=== PATIENT | female | born 1935 | race Caucasian/White ===

== ENCOUNTER 2017-05-24 12:34 | Inpatient (IN) | payer MEDICARE, OTHER, MEDICAID ==
[2017-05-24 17:00] LABS: Hematocrit 26.5 % (37.0-47.0); Hemoglobin 8.7 gm/dL (12.5-16.0); Mean Cell Volume 91.1 fl (78-100); Mean Corpuscular Hemoglobin 29.9 pg (27-31); Mean Corpuscular Hgb Conc 32.8 g/dl (32-36); Mean Platelet Volume 8.4 fl (6.0-9.5); Neutrophil % 68.1 % (42-75.0); Platelet Count 119 K/mm3 (150-450); Red Blood Count 2.91 M/mm3 (4.2-5.4); Red Cell Distribution Width 14.2 % (11.5-14.0)
[2017-05-24 17:07] LABS: Anion Gap 13.1 mmol/L (6.8-13.8); BUN/Creatinine Ratio 17.6 (9.0-21.6); Calcium * 8.7 mg/dL (7.9-10.9); Carbon Dioxide 28.3 mmol/L (24-32.6); Estimated Creat Clear 25.5; Potassium 4.4 mmol/L (3.4-4.6)
[2017-05-24] MEDS ORDERED: ACETAMINOPHEN PO PRN (17:14)
[2017-05-24] MEDS ORDERED: [UNRECOGNIZED DRUG - OTHER] PO PRN (17:14)
[2017-05-24] MEDS ORDERED: LOPERAMIDE HCL 2 MG CAPSULE PO PRN (17:14)
[2017-05-24] MEDS ORDERED: HYDROCODONE PO PRN (17:14)
[2017-05-24] MEDS ORDERED: NITROGLYCERIN 0.4 MG/TAB BTL SL PRN (17:21)
[2017-05-24] MEDS: METHYLPREDNISOLONE SOD SUCC 250 MG in NORMAL SALINE 50 ML IV SCH ×2 (17:38→23:36)
--- NOTE | 2017-05-24 19:24 | PN ---
Dictated Progress Note - Date and Time Seen: Date: 05/24/17 Time: 19:20 - Progress Note Narrative: Vital Signs - Last Taken Temp 36.5 C 05/24/17 16:06 Pulse 83 05/24/17 16:06 Resp 16 05/24/17 16:06 BP 142/61 05/24/17 16:06 Pulse Ox 97 05/24/17 16:06 Abnormal/Pending Laboratory Last 24 HRS 05/24/17 05/24/17 05/24/17 16:55 16:55 12:42 WBC 3.0 L RBC 2.91 L Hgb 8.7 L Hct 26.5 L RDW 14.2 H Plt Count 119 L Lymphocytes % 14.8 L Monocytes % 13.8 H Lymphocytes # 0.44 L ESR BUN 24 H Est GFR (Non-Af Amer) 39 L C-Reactive Prot, Quant 3.2 H 05/24/17 12:42 WBC RBC Hgb Hct RDW Plt Count Lymphocytes % Monocytes % Lymphocytes # ESR 60 H BUN Est GFR (Non-Af Amer) C-Reactive Prot, Quant She was admitted from Dr Gaviria's office with working diagnosis of Temporal Arteritis. Vision changes, left eye discomfort and otic disc edema. ESR elevated. Explained what was involved with LEFT temporal artery biopsy to obtain diagnosis. Risks and benefits were outlined. Her questions were answered to her apparent satisfaction and informed consent obtained. She is on Eloquis, however the procedure can be done with local anesthesia/MAC. Will tentatively arrange for surgery in the AM. H&P by Hospitalist coretta.
--- NOTE | 2017-05-24 20:05 | HP ---
Chief Complaint - Chief Complaint Date of Service: 05/24/17 Time of Service: 19:58 Chief Complaint: Optic nerve edema, probable temporal arteritis History of Present Illness: 82 years old white female adm from the doctors office to the hospital with reports from Dr Jeronimo of optic nerve edema OS, probable temporal arteritis. pt stated she had a two day follow up appt for glaucoma involving the right eye. On this appt she was instructed to come to the hospital due to left eye optic nerve edema. pt denies ocular pain,headache, fatigue and report slight vision changes to left eye.PMH significant for glaucoma, anxiety,depression, hypertension, pacemaker, aortic valve replace and arthritis. On this adm ESR 60 and CRP 3.2 she was initiated on solumedrol. Plan for left temporal artery biopsy to obtain diagnosis tomorrow with Dr. Clements under local anesthesia/ MAC. pt is on Eliquis 2.5BID for aortic valve and pacemaker since 2007. RCRI 1 point 0.9% risk for major cardiac event. Pt is medically appropriate for plan procedure.Plan of care discussed with pt she verbalized understanding and agrees. - Patient's Past Medical History Patient History - Medical: Anemia, Anxiety, Depression, Glaucoma, Other - bladder prolaspe, dry eyes Patient History - Cardiac/Respiratory: Hypertension, Myocardial Infarction - with stents, Other Patient History - Cancer: Bladder Patient History - Surgical Procedures: Coronary Bypass Surgery, Hysterectomy, Pacemaker, Total Knee Replacement - right knee replacement, Other - aortic valve replaced 2007, Orthopedic - left shoulder rotator cuff repair,, Urology - bladder sling, straight cath Patient History - Other: None - Family History Father Family History - Medical: Family History - Cardiac/Respiratory: Myocardial Infarction Mother Family History - Medical: Family History - Cardiac/Respiratory: COPD - Social History Living Situations: alone Abuse History: No History of abuse Psych History: Hx of Depression Smoking Status: Former smoker Have you smoked in the past 12 months: No Do you dip or chew tobacco: No Patient requests Smoking Cessation Consult: No Initiate information on Smoking Cessation: No Alcohol Use: none Drug Use: none Review Of Systems (GEN) - Review of Systems Generalized/Overall Review: Present: No Symptoms Reported EENTM: Present: Other - dry eyes ,mild vision changes in right eye Respiratory: Present: No Symptoms Reported Cardiac: Present: No Symptoms Reported Abdominal: Present: No Symptoms Reported Genitourinary: Present: Retention - straight cath Musculoskeletal: Present: No Symptoms Reported Neurological: Present: No Symptoms Reported Skin: Present: No Symptoms Reported Endocrine: Present: No Symptoms Reported Allergies/Adverse Reactions: Allergies Allergy/AdvReac Type Severity Reaction Status Date / Time Penicillins Allergy Verified 05/24/17 16:47 pseudoephedrine Allergy Verified 05/24/17 16:47 [From [facility]] Sulfa (Sulfonamide Allergy Verified 05/24/17 16:47 Antibiotics) Home Medications: HOME MEDICATIONS Apixaban [Eliquis] 2.5 mg PO BID 05/24/17 [Last Taken Unknown] Atorvastatin Calcium 40 mg PO HS 05/24/17 [Last Taken Unknown] Carbidopa/Levodopa [Carbidopa-Levodopa 10-100 Tab] 1 each PO TID 05/24/17 [Last Taken Unknown] Cilostazol [Pletal] 50 mg PO BID 05/24/17 [Last Taken Unknown] Citalopram Hydrobromide [Celexa] 20 mg PO HS 05/24/17 [Last Taken Unknown] Fluticasone Propionate [Flonase] 1 spray NS DAILY 05/24/17 [Last Taken Unknown] Gabapentin 100 mg PO HS 05/24/17 [Last Taken Unknown] HYDROcodone/ACETAMINOPHEN [Hydrocodon-Acetaminoph 7.5-325] 1 each PO PRN PRN [Last Taken Unknown] Isosorbide Mononitrate [Isosorbide Mononitrate ER] 120 mg PO DAILY 05/24/17 [ Last Taken Unknown] LORazepam [Ativan] 0.5 mg PO HS 05/24/17 [Last Taken Unknown] Loperamide HCl [Imodium A-D] 2 mg PO PRN PRN 05/24/17 [Last Taken Unknown] Metoprolol Tartrate [Lopressor] 25 mg PO DAILY 05/24/17 [Last Taken Unknown] Pantoprazole Sodium 40 mg PO DAILY 05/24/17 [Last Taken Unknown] Travoprost [Travatan Z] 1 drop OP HS 05/24/17 [Last Taken Unknown] tiZANidine HCL [Tizanidine HCl] 4 mg PO Q8H 05/24/17 [Last Taken Unknown] traZODone HCL [Trazodone HCl] 150 mg PO HS 05/24/17 [Last Taken Unknown] Exam - Exam Vital Signs: Vital Signs - Last Taken Temp 36.5 C 05/24/17 16:06 Pulse 83 05/24/17 16:06 Resp 16 05/24/17 16:06 BP 142/61 05/24/17 16:06 Pulse Ox 97 05/24/17 16:06 Constitutional: Present: Alert, Oriented x3, Cooperative, No distress, Elderly, Obese ENT Exam: Present: hearing grossly normal Eye Exam: bilateral eye: other - report right eye vision changes Neck: Present: full range of motion Back Exam: Present: normal inspection, no CVA tenderness Respiratory: Present: chest non-tender, lungs clear, normal breath sounds Cardiovascular/Chest: Present: normal peripheral pulses, regular rate, rhythm, no chest tenderness Peripheral Pulses: dorsalis-pedis (R): 2+, dorsalis-pedis (L): 2+ Abdomen: Present: Normal bowel sounds, soft, nontender, nondistended /Rectal: Present: Exam deferred Extremity: Present: normal range of motion, non-tender, normal inspection, no pedal edema Skin Exam: Present: warm/dry Neurologic: Present: normal mood/affect, oriented x 3 Appearance: Present: appropriate appearance, appropriate insight Eye contact: Present: cooperative, good eye contact Thoughts: Present: normal thought pattern, no apparent hallucination Diagnostic Studies: Abnormal Lab Results 05/24/17 05/24/17 05/24/17 Range/Units 12:42 12:42 16:55 WBC 3.0 L (4.0-10.5) K/mm3 RBC 2.91 L (4.2-5.4) M/mm3 Hgb 8.7 L (12.5-16.0) gm/dL Hct 26.5 L (37.0-47.0) % RDW 14.2 H (11.5-14.0) % Plt Count 119 L (150-450) K/mm3 Lymphocytes % 14.8 L (20-51) % Monocytes % 13.8 H (0.0-9) % Lymphocytes # 0.44 L (1.5-3.5) k/mm3 ESR 60 H (0-15) mm/hr BUN (3-23) mg/dL Est GFR (Non-Af Amer) (60-130) mL/min C-Reactive Prot, Quant 3.2 H (0.0-0.9) mg/dL 05/24/17 Range/Units 16:55 WBC (4.0-10.5) K/mm3 RBC (4.2-5.4) M/mm3 Hgb (12.5-16.0) gm/dL Hct (37.0-47.0) % RDW (11.5-14.0) % Plt Count (150-450) K/mm3 Lymphocytes % (20-51) % Monocytes % (0.0-9) % Lymphocytes # (1.5-3.5) k/mm3 ESR (0-15) mm/hr BUN 24 H (3-23) mg/dL Est GFR (Non-Af Amer) 39 L (60-130) mL/min C-Reactive Prot, Quant (0.0-0.9) mg/dL Laboratory Results WBC 3.0 K/mm3 (4.0-10.5) L 05/24/17 16:55 RBC 2.91 M/mm3 (4.2-5.4) L 05/24/17 16:55 Hgb 8.7 gm/dL (12.5-16.0) L 05/24/17 16:55 Hct 26.5 % (37.0-47.0) L 05/24/17 16:55 MCV 91.1 fl (78-100) 05/24/17 16:55 MCH 29.9 pg (27-31) 05/24/17 16:55 MCHC 32.8 g/dl (32-36) 05/24/17 16:55 RDW 14.2 % (11.5-14.0) H 05/24/17 16:55 Plt Count 119 K/mm3 (150-450) L 05/24/17 16:55 MPV 8.4 fl (6.0-9.5) 05/24/17 16:55 Immature Gran % (Auto) 0.30 % (0.001-0.429) 05/24/17 16:55 Immature Gran # (Auto) 0.01 K/mm3 (0.000-0.0310) 05/24/17 16:55 Neutrophils % 68.1 % (42-75.0) 05/24/17 16:55 Lymphocytes % 14.8 % (20-51) L 05/24/17 16:55 Monocytes % 13.8 % (0.0-9) H 05/24/17 16:55 Eosinophils % 2.7 % (0.0-3.0) 05/24/17 16:55 Basophils % 0.3 % (0.0-1.0) 05/24/17 16:55 Nucleated RBC % 0.0 k/mm3 (0-1) 05/24/17 16:55 Neutrophils # 2.0 K/mm3 (1.3-6.0) 05/24/17 16:55 Lymphocytes # 0.44 k/mm3 (1.5-3.5) L 05/24/17 16:55 Monocytes # 0.4 k/mm3 (0.0-1.0) 05/24/17 16:55 Eosinophils # 0.1 k/mm3 (0.0-0.7) 05/24/17 16:55 Absolute Basophils 0.0 k/mm3 (0.0-0.1) 05/24/17 16:55 ESR 60 mm/hr (0-15) H 05/24/17 12:42 Sodium 141 mmol/L (132-142) 05/24/17 16:55 Plasma Sodium 141 mmol/L (130-142) 05/24/17 16:55 Potassium 4.4 mmol/L (3.4-4.6) 05/24/17 16:55 Chloride 104 mmol/L (97-106) 05/24/17 16:55 Carbon Dioxide 28.3 mmol/L (24-32.6) 05/24/17 16:55 Anion Gap 13.1 mmol/L (6.8-13.8) 05/24/17 16:55 BUN 24 mg/dL (3-23) H 05/24/17 16:55 Creatinine 1.36 mg/dL (0.4-1.4) 05/24/17 16:55 Est GFR (Non-Af Amer) 39 mL/min (60-130) L 05/24/17 16:55 BUN/Creatinine Ratio 17.6 (9.0-21.6) 05/24/17 16:55 Random Glucose 98 mg/dL (70-110) 05/24/17 16:55 Calcium 8.7 mg/dL (7.9-10.9) 05/24/17 16:55 C-Reactive Prot, Quant 3.2 mg/dL (0.0-0.9) H 05/24/17 12:42 Assessment/Plan - Narrative Narrative: Temporal Arteritis On adm CRP 3.2, ESR 60 Plan for temporal arteritis biopsy with Dr Clements tomorrow Continue with IV solumedrol On eliquis 2.5mg BID for pacemaker and aortic valve replacement since 2007. will hold tonights dose. Plan for local anesthesia/ MAC Pt is medically appropriate for plan procedure, RCRI 0.9% risk for major cardiac event. keep NPO overnight Hypertension On adm BP 142/61 Continue with home medications Glaucoma Resume home dose of medications Code status: Full GI ppx: protonix VTE ppx: SCD and up ambulating Time 40 minutes and previous records reviewed and case discussed with Dr Clements and Dr Sujit GARCÍA:Pt may straight cath herself - Assessment/Plan (1) Temporal arteritis Problem: Acute (2) Hypertension Problem: Chronic Qualifiers: Hypertension type: essential hypertension Qualified Code(s): I10 - Essential (primary) hypertension (3) Female bladder prolapse Problem: Chronic (4) Glaucoma Problem: Chronic Qualifiers: Primary angle closure glaucoma type: chronic (5) Pacemaker Problem: Chronic (6) Aortic valve replaced Problem: Chronic
[2017-05-24] MEDS ORDERED: CILOSTAZOL 100 MG TABLET PO SCH (21:00)
[2017-05-24] MEDS ORDERED: traZODone HCL 50 MG TABLET ONE (21:06)
[2017-05-24] MEDS: CITALOPRAM HYDROBROMIDE 20 MG TABLET PO SCH (21:18)
[2017-05-24] MEDS: LORazepam 0.5 MG TABLET PO SCH (21:18)
[2017-05-24] MEDS: APIXABAN 2.5 MG TABLET PO SCH (21:21)
[2017-05-24] MEDS: ATORVASTATIN CALCIUM 40 MG TABLET PO SCH (21:21)
[2017-05-24] MEDS: GABAPENTIN 100 MG CAPSULE PO SCH (21:21)
[2017-05-24] MEDS: traZODone HCL 150 MG TABLET PO SCH (21:25)
[2017-05-24] MEDS: tiZANidine HCL 4 MG TABLET PO SCH (21:33)
[2017-05-24] MEDS: TRAVOPROST 25 DROP BTL OP SCH (23:36)
[2017-05-25] MEDS: METOPROLOL TARTRATE 25 MG TABLET PO SCH ×2 (00:40→20:27)
[2017-05-25] MEDS ORDERED: DEXTROSE 5%-NORMAL SALINE 1,000 ML IV SCH (01:00)
[2017-05-25] MEDS ORDERED: ACETAMINOPHEN 500 MG TABLET PO PRN (04:25)
[2017-05-25] MEDS: tiZANidine HCL 4 MG TABLET PO SCH ×3 (04:42→19:14)
[2017-05-25] MEDS: HYDROcodone/ACETAMINOPHEN 1 EACH TABLET PO PRN ×2 (04:58→19:13)
[2017-05-25 05:20] LABS: Hematocrit 27.3 % (37.0-47.0); Hemoglobin 8.8 gm/dL (12.5-16.0); Mean Cell Volume 89.5 fl (78-100); Mean Corpuscular Hemoglobin 28.9 pg (27-31); Mean Corpuscular Hgb Conc 32.2 g/dl (32-36); Mean Platelet Volume 8.8 fl (6.0-9.5); Neutrophil # 1.8 K/mm3 (1.3-6.0); Neutrophil % 89.2 % (42-75.0); Platelet Count 139 K/mm3 (150-450); Red Blood Count 3.05 M/mm3 (4.2-5.4)
[2017-05-25 05:26] LABS: Partial Thrombolplastin Time 29.2 Seconds (24-32)
[2017-05-25] MEDS: METHYLPREDNISOLONE SOD SUCC 250 MG in NORMAL SALINE 50 ML IV SCH ×4 (05:40→21:56)
--- NOTE | 2017-05-25 07:04 | PN ---
Subjective - Date and Time Seen Date: 05/25/17 Time: 06:49 Subjective Narrative: Patient seen this morning still in bed no report of discomfort. She denies blurred vision, headaches, vision changes and no redness of the eyes. Objective - Review of Systems Generalized/Overall Review: Reports: No Symptoms Reported EENTM: Reports: No Symptoms Reported Respiratory: Reports: No Symptoms Reported Cardiac: Reports: No Symptoms Reported Abdominal: Reports: No Symptoms Reported Genitourinary Symptoms: Reports: No Symptoms Reported Musculoskeletal Complaints: Reports: No Symptoms Reported Neurological: Reports: No Symptoms Reported Skin: Reports: No Symptoms Reported Endocrine: Reports: No Symptoms Reported - Vitals Vitals: Last Vital Signs Temp 37.0 C 05/25/17 03:00 Pulse 72 05/25/17 03:00 Resp 18 05/25/17 03:00 BP 112/51 05/25/17 03:00 Pulse Ox 93 05/25/17 03:00 - Abnormal Lab Findings Abnormal Lab Findings: Abnormal Lab Results 05/24/17 05/24/17 05/24/17 Range/Units 12:42 12:42 16:55 WBC 3.0 L (4.0-10.5) K/mm3 RBC 2.91 L (4.2-5.4) M/mm3 Hgb 8.7 L (12.5-16.0) gm/dL Hct 26.5 L (37.0-47.0) % RDW 14.2 H (11.5-14.0) % Plt Count 119 L (150-450) K/mm3 Immature Gran % (Auto) (0.001-0.429) % Neutrophils % (42-75.0) % Lymphocytes % 14.8 L (20-51) % Monocytes % 13.8 H (0.0-9) % Lymphocytes # 0.44 L (1.5-3.5) k/mm3 ESR 60 H (0-15) mm/hr BUN (3-23) mg/dL Est GFR (Non-Af Amer) (60-130) mL/min C-Reactive Prot, Quant 3.2 H (0.0-0.9) mg/dL 05/24/17 05/25/17 Range/Units 16:55 05:12 WBC 2.0 L D (4.0-10.5) K/mm3 RBC 3.05 L (4.2-5.4) M/mm3 Hgb 8.8 L (12.5-16.0) gm/dL Hct 27.3 L (37.0-47.0) % RDW (11.5-14.0) % Plt Count 139 L (150-450) K/mm3 Immature Gran % (Auto) 1.00 H (0.001-0.429) % Neutrophils % 89.2 H (42-75.0) % Lymphocytes % 8.8 L (20-51) % Monocytes % (0.0-9) % Lymphocytes # 0.18 L (1.5-3.5) k/mm3 ESR (0-15) mm/hr BUN 24 H (3-23) mg/dL Est GFR (Non-Af Amer) 39 L (60-130) mL/min C-Reactive Prot, Quant (0.0-0.9) mg/dL - Exam Constitutional: Present: Alert, Oriented x3, Cooperative, No distress, Elderly ENT Exam: Present: hearing grossly normal Neck: Present: non-tender, full range of motion Breasts: Present: Exam deferred Respiratory: Present: chest non-tender, lungs clear, normal breath sounds, no respiratory distress Cardiovascular/Chest: Present: normal peripheral pulses, regular rate, rhythm, no chest tenderness, no edema, no gallop Abdomen: Present: Normal bowel sounds, soft /Rectal: Present: Exam deferred Extremity: Present: normal range of motion, non-tender, normal inspection, no calf tenderness Skin Exam: Present: warm/dry Lymphatic: Present: no adenopathy Neurologic: Present: oriented x 3 Appearance: Present: appropriate appearance Eye contact: Present: cooperative, good eye contact Thoughts: Present: normal thought pattern Assessment/Plan Plan Narrative: Temporal Arteritis On adm CRP 3.2, ESR 60 Plan for temporal arteritis biopsy with Dr Clements today Continue with IV solumedrol On eliquis 2.5mg BID for pacemaker and aortic valve replacement since 2007. Dose was held overnight. Plan for local anesthesia/ MAC Pt is medically appropriate for plan procedure, RCRI 0.9% risk for major cardiac event. keep NPO overnight Hypertension On adm BP 142/61--->112/51 Continue with home medications Glaucoma Resume home dose of medications Anemia On adm hgb/ Hct 8.7/26.5--->8.8/27.3 Iron study Ferritin and vitamin B12 pending Ferrous sulphate 325mg BID and Colace 100mg BID Neutropenia- possible due to inflammation On adm WBC 3.0--->2.0 Neutrophil elevated and eosinophil within limit Afebrile Code status: Full GI ppx: protonix VTE ppx: SCD and up ambulating Time 15 minutes and case discussed with Dr Sujit GARCÍA:Pt may straight cath herself - Problems/Diagnosis (1) Temporal arteritis Problem: Acute (2) Hypertension Problem: Chronic Qualifiers: Hypertension type: essential hypertension Qualified Code(s): I10 - Essential (primary) hypertension (3) Female bladder prolapse Problem: Chronic (4) Glaucoma Problem: Chronic Qualifiers: Primary angle closure glaucoma type: chronic (5) Pacemaker Problem: Chronic (6) Aortic valve replaced Problem: Chronic (7) Anemia Problem: Acute (8) Neutropenia Problem: Acute
[2017-05-25 08:24] LABS: Ferritin 53 ng/mL (8-252); Vitamin B12 873 pg/mL (193-986)
[2017-05-25] MEDS: DEXTROSE 5%-NORMAL SALINE 1,000 ML IV PRN ×2 (08:50→10:14)
[2017-05-25 08:58] LABS: Iron 36 mcg/dL (35-120); Transferrin Sat. (% Sat.) 16 % (15-55)
[2017-05-25] MEDS ORDERED: PANTOPRAZOLE SODIUM 40 MG TABLET.EC PO SCH (09:00)
[2017-05-25] MEDS ORDERED: METOPROLOL TARTRATE 25 MG TABLET PO SCH (09:00)
[2017-05-25] MEDS ORDERED: BUPIVACAINE HCL/EPINEPHRINE 50 ML VIAL IJ ONE ×2 (09:10)
--- NOTE | 2017-05-25 10:03 | OR ---
Operative Report - Dictated Report Narrative: OPERATIVE REPORT DATE OF OPERATION: 05/25/2017 PREOPERATIVE DIAGNOSIS: Suspected temporal arteritis POSTOPERATIVE DIAGNOSIS: Same (pathology pending) OPERATION: Left temporal artery biopsy SURGEON: Mony Clements MD ANESTHESIA: MAC/local Guillermo Bruce CRNA INDICATIONS FOR PROCEDURE: The patient is an 82-year-old female admitted with visual changes, left temporal pain, elevated sedimentation rate, and disc edema. FINDINGS: Pathology pending NARRATIVE OF PROCEDURE: The patient was identified preoperatively, the surgical site was marked, and prior to the administration of anesthetic a multidisciplinary timeout was observed. With the patient in the supine position and after the administration of intravenous sedation the left denominational was prepped with Betadine solution and isolated with sterile drapes. The remainder the patient was covered with sterile disposable drapes. The course of the left temporal artery was outlined with a marking pen and the skin and subcutaneous tissue infiltrated with 0.5% Marcaine with epinephrine. The skin incision was made sharply. Dissection was carried through subcutaneous tissue with electrocautery. The fascial plane was then bluntly developed to expose a suitable segment of temporal artery. The artery was cross clamped, divided, and a suitable segment submitted for pathology. The ends of the artery was secured with 3-0 silk ties. The surgical site appeared hemostatic. After receiving a correct sponge needle and instrument count attention was turned to closing the wound. Subcutaneous tissue was approximated with an interrupted suture of 4-0 chromic. The skin was closed with a running subcuticular suture of 4-0 Vicryl. The operative site was washed and dried. A dressing of Dermabond was applied. The operative procedure was terminated at this point. The patient tolerated the anesthetic and procedure well without complication. There was no measurable blood loss. She was transferred back to the floor awake and in stable condition. Reviewed and electronically signed
[2017-05-25] MEDS: ISOSORBIDE MONONITRATE 120 MG TAB.SR.24H PO SCH (10:09)
[2017-05-25] MEDS: FERROUS SULFATE 325 MG TABLET PO SCH ×2 (10:09→16:40)
[2017-05-25] MEDS: PANTOPRAZOLE SODIUM 40 MG TABLET.EC PO SCH (10:09)
[2017-05-25] MEDS: CARBIDOPA PO SCH ×3 (10:10→16:40)
[2017-05-25] MEDS: LEVODOPA PO SCH ×3 (10:10→16:40)
[2017-05-25] MEDS: DOCUSATE SODIUM 100 MG CAPSULE PO SCH ×2 (10:10→20:27)
[2017-05-25] MEDS: FLUTICASONE PROPIONATE 120 SPRAY INHALER NS SCH (10:11)
[2017-05-25] MEDS: APIXABAN 2.5 MG TABLET PO SCH ×2 (11:32→20:26)
[2017-05-25] MEDS: TRAVOPROST 25 DROP BTL OP SCH (20:25)
[2017-05-25] MEDS: GABAPENTIN 100 MG CAPSULE PO SCH (20:26)
[2017-05-25] MEDS: CITALOPRAM HYDROBROMIDE 20 MG TABLET PO SCH (20:27)
[2017-05-25] MEDS: ATORVASTATIN CALCIUM 40 MG TABLET PO SCH (20:27)
[2017-05-25] MEDS: traZODone HCL 150 MG TABLET PO SCH (20:28)
[2017-05-25] MEDS: LORazepam 0.5 MG TABLET PO SCH (20:31)
[2017-05-26] MEDS: METHYLPREDNISOLONE SOD SUCC 250 MG in NORMAL SALINE 50 ML IV SCH ×4 (04:02→23:24)
[2017-05-26] MEDS: tiZANidine HCL 4 MG TABLET PO SCH ×3 (04:07→20:24)
--- NOTE | 2017-05-26 06:25 | PN ---
Subjective - Date and Time Seen Date: 05/26/17 Time: 06:10 Subjective Narrative: Patient seen this morning feeling better, she denies blurred vision or new vision changes. 05/25/17 S/P left temporal arteritis biopsy. Objective - Review of Systems Generalized/Overall Review: Reports: No Symptoms Reported EENTM: Reports: No Symptoms Reported Respiratory: Reports: No Symptoms Reported Cardiac: Reports: No Symptoms Reported Abdominal: Reports: No Symptoms Reported Genitourinary Symptoms: Reports: No Symptoms Reported Musculoskeletal Complaints: Reports: No Symptoms Reported Neurological: Reports: No Symptoms Reported Skin: Reports: No Symptoms Reported Endocrine: Reports: No Symptoms Reported - Vitals Vitals: Last Vital Signs Temp 36.9 C 05/26/17 05:20 Pulse 70 05/26/17 05:20 Resp 12 05/26/17 05:20 BP 148/58 05/26/17 05:20 Pulse Ox 97 05/26/17 05:20 - Abnormal Lab Findings Abnormal Lab Findings: Abnormal Lab Results 05/25/17 Range/Units 05:30 TIBC 226 L (260-445) mcg/dL - Exam Constitutional: Present: Alert, Oriented x3, Cooperative, No distress, Elderly ENT Exam: Present: hearing grossly normal Neck: Present: non-tender, full range of motion Breasts: Present: Exam deferred Respiratory: Present: chest non-tender, lungs clear, normal breath sounds Cardiovascular/Chest: Present: normal peripheral pulses, regular rate, rhythm, no chest tenderness, no edema Abdomen: Present: Normal bowel sounds, soft, nontender, nondistended, no rebound tenderness Extremity: Present: normal range of motion, non-tender, normal inspection, no pedal edema, no calf tenderness Skin Exam: Present: normal color, warm/dry, no cyanosis Lymphatic: Present: no adenopathy Neurologic: Present: alert, normal mood/affect, oriented x 3 Appearance: Present: appropriate appearance, appropriate insight Eye contact: Present: cooperative, good eye contact Thoughts: Present: normal thought pattern, no apparent hallucination Assessment/Plan Plan Narrative: Anemia On adm hgb/ Hct 8.7/26.5--->8.8/27.3 Ferrous sulphate 325mg BID and Colace 100mg BID IVF was DC post-op CBC in am 05/26/17 POD#1 S/P Left Temporal Arteritis biopsy On adm CRP 3.2, ESR 60 Dr Clements following Continue with IV solumedrol last dose 05/27/17 for a total of 12 doses. On eliquis 2.5mg BID for pacemaker and aortic valve replacement since 2007. Hypertension On adm BP 142/61--->112/51 Continue with home medications Glaucoma Resume home dose of medications Neutropenia- possible due to inflammation On adm WBC 3.0--->2.0 Neutrophil elevated and eosinophil within limit Remains Afebrile Code status: Full GI ppx: protonix VTE ppx: SCD and up ambulating Time 15 minutes and case discussed with Dr Sujit GARCÍA:Pt may straight cath herself - Problems/Diagnosis (1) Temporal arteritis Problem: Acute (2) Hypertension Problem: Chronic Qualifiers: Hypertension type: essential hypertension Qualified Code(s): I10 - Essential (primary) hypertension (3) Female bladder prolapse Problem: Chronic (4) Glaucoma Problem: Chronic Qualifiers: Primary angle closure glaucoma type: chronic (5) Pacemaker Problem: Chronic (6) Aortic valve replaced Problem: Chronic (7) Anemia Problem: Acute (8) Neutropenia Problem: Acute
[2017-05-26] MEDS: DOCUSATE SODIUM 100 MG CAPSULE PO SCH ×2 (08:02→20:25)
[2017-05-26] MEDS: ISOSORBIDE MONONITRATE 120 MG TAB.SR.24H PO SCH (08:02)
[2017-05-26] MEDS: APIXABAN 2.5 MG TABLET PO SCH ×2 (08:02→20:26)
[2017-05-26] MEDS: FERROUS SULFATE 325 MG TABLET PO SCH ×2 (08:02→16:57)
[2017-05-26] MEDS: FLUTICASONE PROPIONATE 120 SPRAY INHALER NS SCH (08:03)
[2017-05-26] MEDS: PANTOPRAZOLE SODIUM 40 MG TABLET.EC PO SCH (08:03)
[2017-05-26] MEDS: LEVODOPA PO SCH ×3 (08:03→16:56)
[2017-05-26] MEDS: CARBIDOPA PO SCH ×3 (08:03→16:56)
[2017-05-26] MEDS: LORazepam 0.5 MG TABLET PO SCH (20:23)
[2017-05-26] MEDS: TRAVOPROST 25 DROP BTL OP SCH (20:23)
[2017-05-26] MEDS: METOPROLOL TARTRATE 25 MG TABLET PO SCH (20:24)
[2017-05-26] MEDS: traZODone HCL 150 MG TABLET PO SCH (20:24)
[2017-05-26] MEDS: CITALOPRAM HYDROBROMIDE 20 MG TABLET PO SCH (20:24)
[2017-05-26] MEDS: ATORVASTATIN CALCIUM 40 MG TABLET PO SCH (20:24)
[2017-05-26] MEDS: GABAPENTIN 100 MG CAPSULE PO SCH (20:26)
[2017-05-26] MEDS ORDERED: FLUTICASONE PROPIONATE 120 SPRAY INHALER NS SCH (21:00)
[2017-05-27] MEDS: HYDROcodone/ACETAMINOPHEN 1 EACH TABLET PO PRN (00:12)
[2017-05-27] MEDS: tiZANidine HCL 4 MG TABLET PO SCH ×2 (04:16→12:55)
[2017-05-27] MEDS: METHYLPREDNISOLONE SOD SUCC 250 MG in NORMAL SALINE 50 ML IV SCH ×2 (04:16→12:55)
[2017-05-27] MEDS: LISINOPRIL 10 MG TABLET PO SCH ×2 (05:19→09:01)
[2017-05-27 05:28] LABS: Hematocrit 27.4 % (37.0-47.0); Hemoglobin 9.2 gm/dL (12.5-16.0); Mean Cell Volume 87.5 fl (78-100); Mean Corpuscular Hemoglobin 29.4 pg (27-31); Mean Corpuscular Hgb Conc 33.6 g/dl (32-36); Neutrophil # 3.9 K/mm3 (1.3-6.0); Neutrophil % 91.2 % (42-75.0); Platelet Count 140 K/mm3 (150-450); Red Blood Count 3.13 M/mm3 (4.2-5.4); White Blood Count 4.2 K/mm3 (4.0-10.5)
[2017-05-27] MEDS: PANTOPRAZOLE SODIUM 40 MG TABLET.EC PO SCH (07:34)
--- NOTE | 2017-05-27 09:29 | DS ---
(1) Temporal arteritis Problem: Acute (2) Pancytopenia Problem: Acute Description of Stay: Kerline Nieto is an 82-year-old female admitted for temporal arteritis. I received a call from Dr. Jeronimo her touring production manager, on Saturday asking her to be admitted to receive Solu-Medrol 250 mg 4 times a day IV for 12 doses. She has tolerated steroids well and is receiving her last dose at 10 AM this morning. During her stay we will also discovered she has pancytopenia including anemia of hemoglobin 8.2 g. Her platelets are slightly low 130,000 and her white count is low at 2000 on steroids. I will monitor her blood sugars each day and may have not been over 188 and 0 no insulin has been given. She will be discharged to home on oral prednisone tapering dose. Please see Rx. Procedures Performed: none Discharge Location: Home Disposition: Home self-care Condition: Fair Discharge Activity: Activity as tolerated Discharge Diet: General/regular food Additional Patient Instructions (free text): -Please make TCM appointment unless residential discharge. Thank you! Ana @ [employer]. Prescriptions (Any new or edited meds): Ferrous Sulfate 325 mg PO BIDWM #30 tablet predniSONE [Prednisone] See Taper PO DAILY 12 Days #30 tab Complete Home Medications List: Complete Home Medication List: Apixaban [Eliquis] 2.5 mg PO BID 05/24/17 Atorvastatin Calcium 40 mg PO HS 05/24/17 Carbidopa/Levodopa [Carbidopa-Levodopa 10-100 Tab] 1 each PO TID 05/24/17 Citalopram Hydrobromide [Celexa] 20 mg PO HS 05/24/17 Fluticasone Propionate [Flonase] 1 spray NS DAILY 05/24/17 Gabapentin 100 mg PO HS 05/24/17 HYDROcodone/ACETAMINOPHEN [Hydrocodone-Acetamin 7.5-325] 1 each PO PRN PRN 05/24 Isosorbide Mononitrate [Isosorbide Mononitrate ER] 120 mg PO DAILY 05/24/17 LORazepam [Ativan] 0.5 mg PO HS 05/24/17 Loperamide HCl [Imodium A-D] 2 mg PO PRN PRN 05/24/17 Metoprolol Tartrate [Lopressor] 25 mg PO DAILY 05/24/17 Pantoprazole Sodium 40 mg PO DAILY 05/24/17 Travoprost [Travatan Z] 1 drop OP HS 05/24/17 tiZANidine HCL [Tizanidine HCl] 4 mg PO Q8H 05/24/17 traZODone HCL [Trazodone HCl] 150 mg PO HS 05/24/17 Acetaminophen [Tylenol] 500 mg PO Q6H PRN tablet 05/27/17 Docusate Sodium [Colace] 100 mg PO BID capsule 05/27/17 Ferrous Sulfate 325 mg PO BIDWM #30 tablet 05/27/17 predniSONE [Prednisone] See Taper PO DAILY 12 Days #30 tab 05/27/17
[2017-05-27] MEDS: FERROUS SULFATE 325 MG TABLET PO SCH (09:52)
[2017-05-27] MEDS: APIXABAN 2.5 MG TABLET PO SCH (09:52)
[2017-05-27] MEDS: CARBIDOPA PO SCH (09:53)
[2017-05-27] MEDS: DOCUSATE SODIUM 100 MG CAPSULE PO SCH (09:53)
[2017-05-27] MEDS: ISOSORBIDE MONONITRATE 120 MG TAB.SR.24H PO SCH (09:53)
[2017-05-27] MEDS: LEVODOPA PO SCH (09:53)
[2017-05-27] MEDS ORDERED: METHYLPREDNISOLONE SOD SUCC/PF 125 MG/2 ML VIAL IM ONE (12:15)
[2017-05-27 14:39] VITALS: BP 125/49
[2017-05-28] MEDS ORDERED: ESCITALOPRAM OXALATE 5 MG PO SCH (09:00)
== END 2017-05-27 14:45 | disposition home or self-care (01) | DRG 516 ==
LOC: LAB 12:34 → MS 15:48
PROVIDERS: ADMIT Family Medicine; ATTEND Family Medicine
PROC: 03BT0ZX Excision of Left Temporal Artery, Open Approach, Diagnostic (ICD-10-PCS; principal; 2017-05-25)
DX: M31.6 Other giant cell arteritis (principal); H47.10 Unspecified papilledema; I10 Essential (primary) hypertension; I25.2 Old myocardial infarction; Z95.5 Presence of coronary angioplasty implant and graft; Z85.51 Personal history of malignant neoplasm of bladder; Z87.891 Personal history of nicotine dependence; Z95.1 Presence of aortocoronary bypass graft; Z95.2 Presence of prosthetic heart valve; Z95.0 Presence of cardiac pacemaker; Z79.01 Long term (current) use of anticoagulants